=== PATIENT | male | born 1970 | race Caucasian/White ===

== ENCOUNTER → 2019-04-24 | Outpatient (CLI) | payer OTHER ==
--- NOTE | 2019-04-25 12:29 | PCVCIMAG ---
APPROVED REPORT Imaging Protocol: Rest Tc-99m/Stress Tc-99m 1 day Study performed: 04/24/2019 09:20:37 Indication: CAD Patient Location: Out-Patient Stress Nurse: Celestina Vincent RN [place] Tech:Karen RobbinsELIECERMT Ht: 6 ft 0 in Wt: 218 lbs BSA: 2.21 m2 HR: 76 bpm BP: 122/79 mmHg BMI: 29.56 Rhythm: Normal Sinus Rhythm Medical History Medical History: Hyperlipidemia, CAD, Diabetic Insulin, High Ca Score Medications: Lisinopril, Insulin, Crestor, Repatha Allergies: No known drug allergies Cardiac Risk Factors: Age Pretest Chest Pain Characteristics: No chest pain Exercise History: Physically active Resting Data Rest SPECT myocardial perfusion imaging was performed in supine position 45 minutes following the intravenous injection of 10.4 mCi of Tc-99m Sestamibi. Time of rest injection: 839 Date: 04/24/2019 Administration Route: IV Administration Site: Right AC Exercise Stress At peak stress, the patient was injected intravenously with 35.2mCi of Tc-99m Sestamibi. Time of stress injection: 1000 Administration Route: IV Administration Site: Right Arm Patient continued to exercise for 1 minute(s). Gated Stress SPECT was performed 30 minutes after stress injection. The images were gated to evaluate regional wall motion and calculate left ventricular ejection fraction. Stress Test Details Stress Test: Exercise stress testing was performed using a Alexis protocol. HRMax Heart Rate (APMHR): 172 bpm Resting HR: 76 bpmTarget HR (85% APMHR): 146 bpm Max HR Achieved: 169 bpm % of APMHR: 98 Recovery HR: 100 bpm HR response to stress: Normal HR response to stress BP Resting BP: 122/79 mmHg Max BP: 155/75 mmHg Recovery BP: 131/65 mmHg BP response to stress: Normal blood pressure response to stress. ECG Resting ECG: Normal Sinus Rhythm Stress ECG: Sinus Tachycardia ST Change: Horizontal ST depression Maximum ST Deviation: 1.6 mm Arrhythmia: VPC's Recovery ECG: Sinus Tachycardia Clinical Reason for Termination: Maximal effort Stress Symptoms: Dyspnea Exercise duration: 12 min 00 sec Exercise capacity: 13.7 METs Overall Exercise Capacity for Age: Good Angina Score: None Symptoms resolved during recovery. Stress ECG Conclusion 1. Subjectively negative for ischemia 2. Elective cartographic a negative for ischemia 3. Satisfactory functional capacity Henley Treadmill Score is 4.0 which is Moderate risk. Study Data Post stress, the left ventricular ejection was 71%.. SSS: 0 SRS: 2 SDS: 0 TID = 0.74. Perfusion There is a large area of moderately reduced uptake in the entire segment of the inferior wall which is seen on the stress images as well as the resting images. This area thickens and moves normallythickens and moves normally and is most consistent with attenuation artifact. Wall Motion Normal left ventricular wall motion. Nuclear Conclusion ECG Findings: negative for ischemia Clinical Findings: negative for ischemia Nuclear Findings: negative for ischemia Exercise Capacity: normal Left Ventricular Function: normal 1. Low risk study 2. Stress left ventricular ejection fraction 71% without wall motion abnormalities <Conclusion> 1. Subjectively negative for ischemia 2. Elective cartographic a negative for ischemia 3. Satisfactory functional capacity
== END | disposition home or self-care (01) ==
LOC: PCVCIMAG 08:15
PROVIDERS: ATTEND Internal Medicine
DX: I25.10 Atherosclerotic heart disease of native coronary artery without angina pectoris (principal); R93.1 Abnormal findings on diagnostic imaging of heart and coronary circulation
CPT/HCPCS: 78452; 93017; A9500